=== PATIENT | male | born 1940 | race Caucasian/White ===

== ENCOUNTER 2021-04-14 14:15 | Outpatient (CLI) | payer MEDICARE, BC | END 2021-04-14 14:16 | disposition home or self-care (01) | LOC: CSHMRI 14:15 | PROVIDERS: ATTEND Urology | DX: R97.0 Elevated carcinoembryonic antigen [CEA] (principal); N42.9 Disorder of prostate, unspecified; N40.0 Benign prostatic hyperplasia without lower urinary tract symptoms | CPT/HCPCS: 72197; 82565 ==

== ENCOUNTER 2024-11-19 06:41 | Day surgery (SDC) | payer MEDICARE ==
[2024-11-19] MEDS ORDERED: PROPOFOL 20 ML ONE (07:31)
[2024-11-19] MEDS ORDERED: Etomidate 40 MG (20 mL) VIAL ONE (07:58)
[2024-11-19] MEDS ORDERED: PHENYLEPHRINE-NS 100 MCG/ML 10 ML SYRINGE ONE (07:59)
[2024-11-19 08:31] VITALS: BP 104/60; TEMP 97.9
== END 2024-11-19 09:40 | disposition home or self-care (01) ==
LOC: CSHSDC 06:41
PROVIDERS: ATTEND Internal Medicine Cardiovascular Disease
PROC: 5A2204Z Restoration of Cardiac Rhythm, Single (ICD-10-PCS; principal; 2024-11-19)
DX: I48.0 Paroxysmal atrial fibrillation (principal); I13.0 Hypertensive heart and chronic kidney disease with heart failure and stage 1 through stage 4 chronic kidney disease, or unspecified chronic kidney disease; I50.43 Acute on chronic combined systolic (congestive) and diastolic (congestive) heart failure; N18.9 Chronic kidney disease, unspecified; I27.20 Pulmonary hypertension, unspecified; I42.0 Dilated cardiomyopathy; I25.10 Atherosclerotic heart disease of native coronary artery without angina pectoris; E11.22 Type 2 diabetes mellitus with diabetic chronic kidney disease; E78.5 Hyperlipidemia, unspecified; Z96.651 Presence of right artificial knee joint; Z85.850 Personal history of malignant neoplasm of thyroid; Z88.8 Allergy status to other drugs, medicaments and biological substances; Z79.82 Long term (current) use of aspirin; Z79.01 Long term (current) use of anticoagulants; Z79.899 Other long term (current) drug therapy
CPT/HCPCS: 92960; 93005; J2704